=== PATIENT | male | born 1960 | race Two or more races ===

== ENCOUNTER 2017-11-14 20:25 | Inpatient (IN) | payer MEDICAID, OTHER ==
[~2017-11-14] VITALS: Ht 180.3 cm; Wt 99.5 kg
[2017-11-15] MEDS ORDERED: SODIUM CHLORIDE 0.9% 1,000 ML IVB ONE (05:03)
[2017-11-15] MEDS ORDERED: CLINDAMYCIN 900MG IV 50 ML IV ONE (05:15)
[2017-11-15] MEDS ORDERED: KETOROLAC TROMETH 30 MG/ML 1ML VIAL IV ONE (05:15)
[2017-11-15 06:33] LABS: Nucleated Red Blood Cells % 0.1 %
[2017-11-15 06:37] LABS: Basophils # (auto) 0.1 uL; Basophils % (auto) 0.9 % (0.0-2.0); Eosinophils # (auto) 0.8 uL; Eosinophils % (auto) 8.1 % (0.0-7.0); Hematocrit 39.5 % (41.0-53.0); Hemoglobin 13.4 g/dL (13.5-17.5); Lymphocytes % (auto) 31.6 % (10.0-50.0); Mean Corpuscular Hemoglobin 29.1 pg (28.0-32.0); Mean Corpuscular Hgb Conc. 33.8 g/dL (32.0-36.0); Mean Corpuscular Volume 86.3 fL (80.0-100.0); Monocytes # (auto) 0.8 uL; Monocytes % (auto) 8.1 % (0.0-12.0); Neutrophils # (auto) 4.9 uL; Neutrophils % (auto) 51.3 % (37.0-80.0); Platelet Count (auto) 278 10^3/uL (140-450); Red Blood Cells 4.58 10^6/uL (4.5-5.90); Red Cell Distribution Width 13.4 % (11.8-14.3); White Blood Cell 9.5 10^3/uL (4.4-10.8)
[2017-11-15] MEDS ORDERED: cloNIDine HCL 0.1 MG TAB PO PRN (07:00)
[2017-11-15] MEDS ORDERED: ACETAMINOPHEN 325 MG TAB PO PRN (07:00)
[2017-11-15] MEDS ORDERED: ONDANSETRON HCL 4 MG/2 ML VIAL IV PRN (07:00)
[2017-11-15] MEDS ORDERED: DOCUSATE SOD 100 MG CAP PO PRN (07:00)
[2017-11-15 07:08] LABS: Albumin 3.7 g/dL (3.4-5.0); BUN/Creatinine Ratio 12.4; Bilirubin, Total 0.4 mg/dL (0.2-1.0); CRP High Sensitivity 2.3 mg/dL (< 0.3); Calcium 9.2 mg/dL (8.5-10.1); Potassium 3.9 mmol/L (3.5-5.1); Total Protein 8.1 g/dL (6.4-8.2)
[2017-11-15] MEDS: cefTRIAXone 1GM/10ml IVPUSH 10 ML IV SCH (08:46)
[2017-11-15] MEDS: HYDROcodone-ACET 5/325MG TAB PO PRN (08:46)
[2017-11-15] MEDS: ENOXAPARIN SOD 40 MG/0.4 ML SYRINGE SC SCH (10:11)
[2017-11-15] MEDS: FAMOTIDINE 20 MG TAB PO SCH ×2 (10:11→22:08)
[2017-11-15] MEDS: HYDROCORTONE 1% TOPICAL CREAM 30 GM TUBE TOP SCH ×2 (10:11→22:00)
[2017-11-15] MEDS ORDERED: LIDOCAINE 1% HCL (LOCAL ANESTH.) INJ 20ML MDV ONE (11:30)
[2017-11-15] MEDS ORDERED: DIPH25CA66 PO (12:38)
[2017-11-15 13:00] VITALS: BP 154/108
[2017-11-15] MEDS: CLINDAMYCIN 600MG IV 50 ML IV SCH ×2 (14:32→22:08)
[2017-11-15 17:00] VITALS: BP 145/105
[2017-11-15 22:00] VITALS: BP 141/101
[2017-11-15] MEDS: TEMAZEPAM 15 MG CAP PO PRN (22:09)
[2017-11-16 05:39] VITALS: BP 139/82
[2017-11-16 05:52] LABS: Basophils # (auto) 0.1 uL; Eosinophils # (auto) 0.7 uL; Eosinophils % (auto) 11.2 % (0.0-7.0); Hematocrit 36.3 % (41.0-53.0); Hemoglobin 12.2 g/dL (13.5-17.5); Lymphocytes # (auto) 2.2 uL; Lymphocytes % (auto) 36.4 % (10.0-50.0); Mean Corpuscular Hemoglobin 29.2 pg (28.0-32.0); Mean Corpuscular Hgb Conc. 33.6 g/dL (32.0-36.0); Mean Corpuscular Volume 86.9 fL (80.0-100.0); Monocytes # (auto) 0.4 uL; Monocytes % (auto) 7.1 % (0.0-12.0); Neutrophils # (auto) 2.7 uL; Neutrophils % (auto) 44.3 % (37.0-80.0); Nucleated Red Blood Cells % 0.1 %; Platelet Count (auto) 255 10^3/uL (140-450); Red Blood Cells 4.18 10^6/uL (4.5-5.90); Red Cell Distribution Width 13.5 % (11.8-14.3)
[2017-11-16] MEDS: CLINDAMYCIN 600MG IV 50 ML IV SCH ×3 (05:54→21:22)
[2017-11-16] MEDS: HYDROcodone-ACET 5/325MG TAB PO PRN ×2 (05:54→21:23)
[2017-11-16 06:10] LABS: Albumin 3.2 g/dL (3.4-5.0); BUN/Creatinine Ratio 12.6; Bilirubin, Total 0.4 mg/dL (0.2-1.0); Calcium 8.8 mg/dL (8.5-10.1); Potassium 4.2 mmol/L (3.5-5.1); Total Protein 7.2 g/dL (6.4-8.2)
[2017-11-16 08:30] VITALS: BP 135/84
[2017-11-16] MEDS: cefTRIAXone 1GM/10ml IVPUSH 10 ML IV SCH (09:10)
[2017-11-16] MEDS: ENOXAPARIN SOD 40 MG/0.4 ML SYRINGE SC SCH (09:11)
[2017-11-16] MEDS: FAMOTIDINE 20 MG TAB PO SCH ×2 (09:11→21:23)
[2017-11-16] MEDS: HYDROCORTONE 1% TOPICAL CREAM 30 GM TUBE TOP SCH ×2 (09:11→21:24)
[2017-11-16 12:00] VITALS: BP 124/74
[2017-11-16 16:30] VITALS: BP 155/94
[2017-11-16] MEDS: ASCORBIC ACID 500 MG TAB PO SCH (21:23)
[2017-11-16] MEDS: TEMAZEPAM 15 MG CAP PO PRN (21:23)
[2017-11-16 22:00] VITALS: BP 129/79
[2017-11-17 04:55] VITALS: BP 128/82
[2017-11-17] MEDS: CLINDAMYCIN 600MG IV 50 ML IV SCH (05:29)
[2017-11-17 06:41] LABS: Basophils # (auto) 0.1 uL; Basophils % (auto) 0.8 % (0.0-2.0); Eosinophils # (auto) 0.8 uL; Eosinophils % (auto) 12.8 % (0.0-7.0); Hematocrit 38.5 % (41.0-53.0); Lymphocytes # (auto) 2.6 uL; Lymphocytes % (auto) 41.7 % (10.0-50.0); Mean Corpuscular Hemoglobin 29.5 pg (28.0-32.0); Mean Corpuscular Hgb Conc. 33.9 g/dL (32.0-36.0); Mean Corpuscular Volume 87.1 fL (80.0-100.0); Monocytes # (auto) 0.4 uL; Monocytes % (auto) 6.4 % (0.0-12.0); Neutrophils # (auto) 2.4 uL; Neutrophils % (auto) 38.3 % (37.0-80.0); Platelet Count (auto) 267 10^3/uL (140-450); Red Blood Cells 4.42 10^6/uL (4.5-5.90); Red Cell Distribution Width 13.5 % (11.8-14.3); White Blood Cell 6.3 10^3/uL (4.4-10.8)
[2017-11-17 06:59] LABS: Albumin 3.5 g/dL (3.4-5.0); BUN/Creatinine Ratio 15.4; Calcium 9.2 mg/dL (8.5-10.1); Potassium 4.4 mmol/L (3.5-5.1)
[2017-11-17 07:01] LABS: Bilirubin, Total 0.3 mg/dL (0.2-1.0); Total Protein 7.6 g/dL (6.4-8.2)
[2017-11-17] MEDS: cefTRIAXone 1GM/10ml IVPUSH 10 ML IV SCH (08:37)
[2017-11-17] MEDS: ENOXAPARIN SOD 40 MG/0.4 ML SYRINGE SC SCH (08:37)
[2017-11-17] MEDS: ASCORBIC ACID 500 MG TAB PO SCH (08:38)
[2017-11-17] MEDS: FAMOTIDINE 20 MG TAB PO SCH (08:38)
[2017-11-17] MEDS: HYDROCORTONE 1% TOPICAL CREAM 30 GM TUBE TOP SCH (08:41)
[2017-11-17 08:45] VITALS: BP 149/99
[2017-11-17] MEDS ORDERED: MULTIPLE VITAMIN TAB PO SCH (10:00)
== END 2017-11-17 10:53 | disposition home or self-care (01) | DRG 383 ==
LOC: ER 20:25 → TELE 20:26 → EAST 11-15 12:00
PROVIDERS: ADMIT Emergency Medicine; ATTEND Internal Medicine
PROC: 0JJW3ZZ Inspection of Lower Extremity Subcutaneous Tissue and Fascia, Percutaneous Approach (ICD-10-PCS; principal; 2017-11-15)
DX: L03.115 Cellulitis of right lower limb (principal); I11.9 Hypertensive heart disease without heart failure; R16.1 Splenomegaly, not elsewhere classified; L02.415 Cutaneous abscess of right lower limb; E78.5 Hyperlipidemia, unspecified; E66.9 Obesity, unspecified; J98.11 Atelectasis; L40.9 Psoriasis, unspecified; T63.331A Toxic effect of venom of brown recluse spider, accidental (unintentional), initial encounter; Z80.1 Family history of malignant neoplasm of trachea, bronchus and lung; Z82.49 Family history of ischemic heart disease and other diseases of the circulatory system; Z68.30 Body mass index [BMI] 30.0-30.9, adult
CPT/HCPCS: 10022; 36415; 71045; 76881; 76942; 80053; 85025; 86141; 87040; 87077; 87186; 87205; 93005; 96361; 96365; 96375; J1885; J2001; J3490